=== PATIENT | male | born 1955 | race Caucasian/White ===

== ENCOUNTER 2023-02-10 01:10 | Inpatient (IN) | payer OTHER ==
[2023-02-10 02:06] LABS: SARS-CoV-2 NAA Rapid Test Not Detected (NotDetected)
[2023-02-10] MEDS ORDERED: Furosemide 40 MG/4 ML VIAL ONE ×2 (02:25→16:53)
[2023-02-10] MEDS ORDERED: Amiodarone 150 MG/3 ML VIAL ONE (02:35)
[2023-02-10] MEDS ORDERED: Amiodarone In Dextrose 200 ML ONE ×2 (02:44→08:51)
[2023-02-10 02:56] LABS: Hemoglobin 13.8 g/dL (13.5-17.5); Mean Corpuscular HGB CONC 31.4 g/dL (32.0-36.0); Mean Corpuscular Hemoglobin 25.7 pg (27.0-33.0); Mean Corpuscular Volume 82.1 fl (81.2-95.1); Mean Platelet Volume 10.5 fl (7.4-10.4); Platelet Count 166 10x3/uL (150-450); RBC Distribution Width 15.5 % (11.5-14.5); Red Blood Cell (RBC) Count 5.36 10x6/uL (4.32-5.72); White Blood Cell (WBC) Count 3.4 10x3/uL (3.5-10.5)
[2023-02-10 02:58] LABS: MDiff Complete? YES
[2023-02-10 03:14] LABS: ALT (SGPT) 111 U/L (8-55); AST (SGOT) 41 U/L (5-34); Albumin 4.2 g/dL (3.4-4.8); Alkaline Phosphatase 160 U/L (40-110); Anion Gap 19 mmol/L (10-20); BUN (Urea Nitrogen) 19 mg/dL (8.4-25.7); Bilirubin, Total 1.7 mg/dL (0.2-1.2); Calc. Creatinine Clearance 0 mL/min (70-130); Calcium 9.5 mg/dL (7.8-10.44); Carbon Dioxide 20 mmol/L (23-31); Chloride 105 mmol/L (98-107); Eosinophils 2 % (0-10); Estimated GFR 90; Globulin 2.7 g/dL (2.4-3.5); Glucose 100 mg/dL (80-115); Lymphocytes 64 % (21-51); Monocytes 6 % (0-10); Neutrophil 28 % (42-75); Potassium 3.9 mmol/L (3.5-5.1); Protein, Total 6.9 g/dL (5.8-8.1); Sodium 140 mmol/L (136-145)
[2023-02-10 03:15] LABS: Anisocytosis SLIGHT = 6-15 cells (100X) (0-5/hpf); Platelet Morphology Comment Appears Adequate
[2023-02-10] MEDS ORDERED: Metoprolol Tartrate 5 MG/5 ML VIAL ONE (09:56)
[2023-02-10] MEDS ORDERED: Metoprolol Tartrate 5 MG/5 ML VIAL IVP PRN (09:56)
[2023-02-10] MEDS ORDERED: Ondansetron ODT 4 MG TAB PO PRN (10:10)
[2023-02-10] MEDS ORDERED: Acetaminophen 650 MG Suppository PR PRN (10:10)
[2023-02-10] MEDS ORDERED: Guaifenesin DM 100-10/5 ML UDCUP PO PRN (10:10)
[2023-02-10] MEDS ORDERED: Senokot S 8.6-50 MG TAB PO PRN (10:10)
[2023-02-10] MEDS ORDERED: Acetaminophen 325 MG TAB PO PRN (10:10)
[2023-02-10] MEDS ORDERED: Polyethylene Glycol 3350 17 GM Packet PO SCH (10:45)
[2023-02-10 10:58] LABS: INR-International Normal Ratio 1.4; Prothrombin Time 15.2 sec (9.5-12.1)
[2023-02-10] MEDS ORDERED: Famotidine 20 MG TAB PO SCH (11:00)
[2023-02-10] MEDS: Furosemide 40 MG/4 ML VIAL SLOW IVP SCH (13:23)
[2023-02-10] MEDS: Amiodarone In Dextrose 360 MG in Premix Bag 1 BAG IVPB SCH ×2 (13:26→18:53)
[2023-02-10] MEDS ORDERED: Furosemide 40 MG/4 ML VIAL SLOW IVP SCH ×2 (14:00→17:00)
[2023-02-10] MEDS: Carvedilol 6.25 MG TAB PO SCH (16:13)
[2023-02-10] MEDS ORDERED: Warfarin Sodium 10 MG TAB PO SCH (17:00)
[2023-02-10 17:27] LABS: Actual Bicarbonate (HCO3a) 12.6 mEq/L (22-28); Base Excess (BEa) -8.4 mEq/L (-2.0 to +3.0); CO2 Tension 18.7 mmHg (35.0-45.0); Calcium, Ionized (arterial) 1.11 mmol/L (1.12-1.30); Carboxyhemoglobin (COHb) 0.2 gm% (0.0-3.0); Hematocrit-ABG 46 % (42.0-52.0); Hemoglobin (Hb) 15.5 g/dL (14.0-18.0); Potassium - ABG Lab 4.45 mmol/L (3.70-5.30); Puncture Site RBA; pH, Arterial 7.447 (7.35-7.45)
[2023-02-10 17:28] LABS: ALV-art Gradient 333.025 mmHg (0-20); O2 Tension (PaO2), arterial 356.6 mmHg (> 80.0)
[2023-02-10] MEDS: Polyethylene Glycol 3350 17 GM Packet PO SCH (20:40)
[2023-02-10] MEDS: Famotidine 20 MG TAB PO SCH (20:40)
[2023-02-10] MEDS: Atorvastatin Calcium 40 MG TAB PO SCH (20:40)
[2023-02-11 04:05] LABS: #Basophils 0.1 10x3/uL (0.0-0.2); #Monocytes 1.9 10x3/uL (0.0-1.1); #Neutrophils 14.4 10x3/uL (1.5-8.4); %Basophils 0.3 % (0.0-2.0); %Eosinophils 0.1 % (0.0-6.0); %Lymphocytes 8.4 % (18.0-47.0); %Monocytes 10.7 % (0.0-10.0); %Neutrophils 79.9 % (40.0-75.0); Hemoglobin 14.8 g/dL (13.5-17.5); INR-International Normal Ratio 1.9; Mean Corpuscular HGB CONC 31.5 g/dL (32.0-36.0); Mean Corpuscular Volume 82.5 fl (81.2-95.1); Mean Platelet Volume 11.4 fl (7.4-10.4); Platelet Count 173 10x3/uL (150-450); Prothrombin Time 20.3 sec (9.5-12.1); RBC Distribution Width 17.2 % (11.5-14.5)
[2023-02-11 04:24] LABS: Anion Gap 28 mmol/L (10-20); BUN (Urea Nitrogen) 29 mg/dL (8.4-25.7); Calc. Creatinine Clearance 66 mL/min (70-130); Calcium 9.4 mg/dL (7.8-10.44); Carbon Dioxide 12 mmol/L (23-31); Chloride 104 mmol/L (98-107); Estimated GFR 47; Glucose 85 mg/dL (80-115); Potassium 5.5 mmol/L (3.5-5.1); Sodium 138 mmol/L (136-145)
[2023-02-11] MEDS: Furosemide 40 MG/4 ML VIAL SLOW IVP SCH ×2 (05:59→13:30)
[2023-02-11] MEDS: Amiodarone In Dextrose 360 MG in Premix Bag 1 BAG IVPB SCH (07:51)
[2023-02-11] MEDS: DOBUTamine 500 mg/250 ml 250 ML IVPB SCH (07:51)
[2023-02-11] MEDS: Carvedilol 6.25 MG TAB PO SCH ×2 (07:52→16:44)
[2023-02-11] MEDS: Aspirin Chewable 81 MG TAB PO SCH (07:52)
[2023-02-11] MEDS: Famotidine 20 MG TAB PO SCH ×2 (07:52→20:25)
[2023-02-11] MEDS: Polyethylene Glycol 3350 17 GM Packet PO SCH ×3 (07:54→20:39)
[2023-02-11] MEDS ORDERED: Sodium Bicarbonate 140 MEQ in Dextrose 5% in Water 1,000 ML IV SCH (08:00)
[2023-02-11] MEDS ORDERED: Lisinopril 5 MG TAB PO SCH (09:00)
[2023-02-11 13:31] LABS: Anion Gap 21 mmol/L (10-20); BUN (Urea Nitrogen) 34 mg/dL (8.4-25.7); Calc. Creatinine Clearance 61 mL/min (70-130); Calcium 8.5 mg/dL (7.8-10.44); Carbon Dioxide 12 mmol/L (23-31); Chloride 105 mmol/L (98-107); Estimated GFR 43; Glucose 146 mg/dL (80-115); Potassium 4.9 mmol/L (3.5-5.1); Sodium 133 mmol/L (136-145)
[2023-02-11] MEDS ORDERED: Warfarin Sodium 2.5 MG TAB PO SCH (17:00)
[2023-02-11] MEDS: Atorvastatin Calcium 40 MG TAB PO SCH (20:25)
[2023-02-12 03:20] LABS: #Basophils 0.1 10x3/uL (0.0-0.2); #Eosinphils 0.2 10x3/uL (0.0-0.5); #Monocytes 1.1 10x3/uL (0.0-1.1); #Neutrophils 8.3 10x3/uL (1.5-8.4); %Basophils 0.7 % (0.0-2.0); %Eosinophils 1.9 % (0.0-6.0); %Lymphocytes 17.7 % (18.0-47.0); %Monocytes 8.9 % (0.0-10.0); %Neutrophils 70.4 % (40.0-75.0); Hemoglobin 13.1 g/dL (13.5-17.5); Mean Corpuscular HGB CONC 31.9 g/dL (32.0-36.0); Mean Corpuscular Hemoglobin 25.8 pg (27.0-33.0); Mean Corpuscular Volume 80.9 fl (81.2-95.1); Mean Platelet Volume 11.1 fl (7.4-10.4); Platelet Count 138 10x3/uL (150-450); RBC Distribution Width 15.5 % (11.5-14.5); Red Blood Cell (RBC) Count 5.08 10x6/uL (4.32-5.72); White Blood Cell (WBC) Count 11.9 10x3/uL (3.5-10.5)
[2023-02-12 03:23] LABS: INR-International Normal Ratio 1.8; Prothrombin Time 19.2 sec (9.5-12.1)
[2023-02-12 03:43] LABS: Anion Gap 17 mmol/L (10-20); BUN (Urea Nitrogen) 39 mg/dL (8.4-25.7); Calc. Creatinine Clearance 69 mL/min (70-130); Calcium 8.3 mg/dL (7.8-10.44); Carbon Dioxide 21 mmol/L (23-31); Chloride 101 mmol/L (98-107); Estimated GFR 50; Glucose 105 mg/dL (80-115); Potassium 4.4 mmol/L (3.5-5.1); Sodium 135 mmol/L (136-145)
[2023-02-12] MEDS: Furosemide 40 MG/4 ML VIAL SLOW IVP SCH ×2 (05:14→14:09)
[2023-02-12] MEDS: Carvedilol 6.25 MG TAB PO SCH ×2 (07:49→17:50)
[2023-02-12] MEDS: Aspirin Chewable 81 MG TAB PO SCH (07:50)
[2023-02-12] MEDS: Famotidine 20 MG TAB PO SCH ×2 (07:51→20:02)
[2023-02-12] MEDS: Polyethylene Glycol 3350 17 GM Packet PO SCH ×2 (07:52→20:02)
[2023-02-12] MEDS: DOBUTamine 500 mg/250 ml 250 ML IVPB SCH (15:53)
[2023-02-12] MEDS ORDERED: Warfarin Sodium 7.5 MG TAB PO SCH (17:00)
[2023-02-12] MEDS: Atorvastatin Calcium 40 MG TAB PO SCH (20:02)
[2023-02-13 04:02] LABS: INR-International Normal Ratio 1.6; Prothrombin Time 17.2 sec (9.5-12.1)
[2023-02-13] MEDS: Furosemide 40 MG/4 ML VIAL SLOW IVP SCH ×2 (05:24→14:43)
[2023-02-13] MEDS: Carvedilol 6.25 MG TAB PO SCH ×2 (08:59→16:45)
[2023-02-13] MEDS: Aspirin Chewable 81 MG TAB PO SCH (08:59)
[2023-02-13] MEDS: Polyethylene Glycol 3350 17 GM Packet PO SCH ×2 (08:59→20:08)
[2023-02-13] MEDS: Famotidine 20 MG TAB PO SCH ×2 (08:59→20:08)
[2023-02-13 09:09] LABS: #Basophils 0.1 10x3/uL (0.0-0.2); #Eosinphils 0.2 10x3/uL (0.0-0.5); #Monocytes 0.9 10x3/uL (0.0-1.1); #Neutrophils 6.7 10x3/uL (1.5-8.4); %Basophils 0.6 % (0.0-2.0); %Eosinophils 2.1 % (0.0-6.0); %Lymphocytes 16.6 % (18.0-47.0); %Monocytes 9.3 % (0.0-10.0); Hemoglobin 12.2 g/dL (13.5-17.5); Mean Corpuscular HGB CONC 30.9 g/dL (32.0-36.0); Mean Corpuscular Hemoglobin 25.2 pg (27.0-33.0); Mean Corpuscular Volume 81.6 fl (81.2-95.1); Mean Platelet Volume 11.3 fl (7.4-10.4); Platelet Count 151 10x3/uL (150-450); RBC Distribution Width 15.6 % (11.5-14.5); Red Blood Cell (RBC) Count 4.84 10x6/uL (4.32-5.72); White Blood Cell (WBC) Count 9.4 10x3/uL (3.5-10.5)
[2023-02-13 09:26] LABS: Phosphorus 2.8 mg/dL (2.3-4.7)
[2023-02-13 09:29] LABS: Anion Gap 13 mmol/L (10-20); BUN (Urea Nitrogen) 32 mg/dL (8.4-25.7); Calc. Creatinine Clearance 104 mL/min (70-130); Calcium 8.5 mg/dL (7.8-10.44); Carbon Dioxide 28 mmol/L (23-31); Chloride 99 mmol/L (98-107); Estimated GFR 78; Glucose 125 mg/dL (80-115); Magnesium 1.5 mg/dL (1.6-2.6); Potassium 3.4 mmol/L (3.5-5.1); Sodium 137 mmol/L (136-145)
[2023-02-13] MEDS ORDERED: Valsartan 80 MG TAB PO SCH (10:30)
[2023-02-13] MEDS ORDERED: Magnesium Sulfate 4 GM in Sodium Chloride 0.9% 250 ML 250 ML IVPB SCH (11:30)
[2023-02-13] MEDS ORDERED: Magnesium 2 GM/50 ML(in water) 2 GM in Premix Bag 1 BAG IVPB SCH (11:30)
[2023-02-13] MEDS ORDERED: Warfarin Sodium 10 MG TAB PO SCH (17:00)
[2023-02-13] MEDS: Atorvastatin Calcium 40 MG TAB PO SCH (20:08)
[2023-02-14 02:46] LABS: Prothrombin Time 20.9 sec (9.5-12.1)
[2023-02-14 02:50] LABS: #Basophils 0.1 10x3/uL (0.0-0.2); #Eosinphils 0.2 10x3/uL (0.0-0.5); #Monocytes 1.1 10x3/uL (0.0-1.1); %Basophils 0.6 % (0.0-2.0); %Eosinophils 2.8 % (0.0-6.0); %Monocytes 12.9 % (0.0-10.0); %Neutrophils 60.3 % (40.0-75.0); Hemoglobin 12.3 g/dL (13.5-17.5); Mean Corpuscular HGB CONC 31.1 g/dL (32.0-36.0); Mean Corpuscular Hemoglobin 25.5 pg (27.0-33.0); Mean Platelet Volume 11.4 fl (7.4-10.4); Platelet Count 153 10x3/uL (150-450); RBC Distribution Width 15.6 % (11.5-14.5); Red Blood Cell (RBC) Count 4.82 10x6/uL (4.32-5.72); White Blood Cell (WBC) Count 8.4 10x3/uL (3.5-10.5)
[2023-02-14 05:10] VITALS: BMI 35.0
[2023-02-14] MEDS: Furosemide 40 MG/4 ML VIAL SLOW IVP SCH ×2 (05:21→15:22)
[2023-02-14] MEDS: Valsartan 80 MG TAB PO SCH (08:10)
[2023-02-14] MEDS: Aspirin Chewable 81 MG TAB PO SCH (08:11)
[2023-02-14] MEDS: Famotidine 20 MG TAB PO SCH ×2 (08:11→21:40)
[2023-02-14] MEDS: Carvedilol 6.25 MG TAB PO SCH ×2 (08:11→18:15)
[2023-02-14] MEDS: Polyethylene Glycol 3350 17 GM Packet PO SCH ×2 (10:11→21:40)
[2023-02-14] MEDS: Warfarin Sodium 2.5 MG TAB PO SCH (18:17)
[2023-02-14] MEDS: Atorvastatin Calcium 40 MG TAB PO SCH (21:40)
[2023-02-15 04:02] LABS: INR-International Normal Ratio 2.3; Prothrombin Time 24.9 sec (9.5-12.1)
[2023-02-15 04:03] LABS: #Eosinphils 0.3 10x3/uL (0.0-0.5); #Monocytes 1.2 10x3/uL (0.0-1.1); #Neutrophils 4.9 10x3/uL (1.5-8.4); %Basophils 0.5 % (0.0-2.0); %Eosinophils 3.7 % (0.0-6.0); %Lymphocytes 22.9 % (18.0-47.0); %Monocytes 14.6 % (0.0-10.0); %Neutrophils 58.1 % (40.0-75.0); Hemoglobin 12.7 g/dL (13.5-17.5); Mean Corpuscular HGB CONC 30.5 g/dL (32.0-36.0); Mean Corpuscular Hemoglobin 25.5 pg (27.0-33.0); Mean Corpuscular Volume 83.7 fl (81.2-95.1); Mean Platelet Volume 10.6 fl (7.4-10.4); Platelet Count 142 10x3/uL (150-450); RBC Distribution Width 16.1 % (11.5-14.5); Red Blood Cell (RBC) Count 4.98 10x6/uL (4.32-5.72); White Blood Cell (WBC) Count 8.4 10x3/uL (3.5-10.5)
[2023-02-15] MEDS: Furosemide 40 MG/4 ML VIAL SLOW IVP SCH (05:28)
[2023-02-15] MEDS: Valsartan 80 MG TAB PO SCH (08:27)
[2023-02-15] MEDS: Famotidine 20 MG TAB PO SCH ×2 (08:27→21:24)
[2023-02-15] MEDS: Carvedilol 6.25 MG TAB PO SCH ×2 (08:27→17:16)
[2023-02-15] MEDS: Polyethylene Glycol 3350 17 GM Packet PO SCH ×2 (08:28→21:24)
[2023-02-15] MEDS: Aspirin Chewable 81 MG TAB PO SCH (08:28)
[2023-02-15 12:35] LABS: ALT (SGPT) 389 U/L (8-55); AST (SGOT) 69 U/L (5-34); Albumin 3.5 g/dL (3.4-4.8); Alkaline Phosphatase 117 U/L (40-110); Anion Gap 15 mmol/L (10-20); BUN (Urea Nitrogen) 35 mg/dL (8.4-25.7); Bilirubin, Total 1.3 mg/dL (0.2-1.2); Calc. Creatinine Clearance 106 mL/min (70-130); Calcium 8.7 mg/dL (7.8-10.44); Carbon Dioxide 29 mmol/L (23-31); Chloride 98 mmol/L (98-107); Estimated GFR 80; Globulin 2.3 g/dL (2.4-3.5); Glucose 112 mg/dL (80-115); Protein, Total 5.8 g/dL (5.8-8.1); Sodium 138 mmol/L (136-145)
[2023-02-15] MEDS: Furosemide 40 MG TAB PO SCH (15:30)
[2023-02-15] MEDS: Warfarin Sodium 2.5 MG TAB PO SCH (17:16)
[2023-02-15] MEDS: Atorvastatin Calcium 40 MG TAB PO SCH (21:24)
[2023-02-16 04:37] LABS: INR-International Normal Ratio 2.3; Prothrombin Time 24.9 sec (9.5-12.1)
[2023-02-16] MEDS: Valsartan 80 MG TAB PO SCH (08:28)
[2023-02-16] MEDS: Polyethylene Glycol 3350 17 GM Packet PO SCH ×2 (08:28→21:08)
[2023-02-16] MEDS: Famotidine 20 MG TAB PO SCH ×2 (08:28→21:07)
[2023-02-16] MEDS: Furosemide 40 MG TAB PO SCH ×2 (08:28→16:50)
[2023-02-16] MEDS: Carvedilol 6.25 MG TAB PO SCH ×2 (08:28→16:50)
[2023-02-16] MEDS: Aspirin Chewable 81 MG TAB PO SCH (08:28)
[2023-02-16] MEDS: Warfarin Sodium 2.5 MG TAB PO SCH (16:50)
[2023-02-16] MEDS: Atorvastatin Calcium 40 MG TAB PO SCH (21:07)
[2023-02-16 23:02] VITALS: TEMP 97.7
[2023-02-17 00:47] VITALS: BP 130/64
== END 2023-02-17 00:55 | DRG 291 ==
LOC: CSHERS 01:10 → EEVIPCON 06:52 → CSHTELE 06:52 → CSHERHOLD 07:02 → CSHIMCU 08:50 → CSHTELE 02-14 19:11
PROVIDERS: ADMIT Family Medicine; ATTEND Family Medicine
PROC: 4A033R1 Measurement of Arterial Saturation, Peripheral, Percutaneous Approach (ICD-10-PCS; principal; 2023-02-10)
PROC: 5A09457 Assistance with Respiratory Ventilation, 24-96 Consecutive Hours, Continuous Positive Airway Pressure (ICD-10-PCS; 2023-02-10)
DX: I11.0 Hypertensive heart disease with heart failure (principal); I50.23 Acute on chronic systolic (congestive) heart failure; J96.01 Acute respiratory failure with hypoxia; I48.11 Longstanding persistent atrial fibrillation; E87.20 Acidosis, unspecified; E87.3 Alkalosis; N17.9 Acute kidney failure, unspecified; I42.0 Dilated cardiomyopathy; I25.10 Atherosclerotic heart disease of native coronary artery without angina pectoris; G47.33 Obstructive sleep apnea (adult) (pediatric); K59.09 Other constipation; J44.9 Chronic obstructive pulmonary disease, unspecified; G40.909 Epilepsy, unspecified, not intractable, without status epilepticus; K43.9 Ventral hernia without obstruction or gangrene; E78.5 Hyperlipidemia, unspecified; E11.9 Type 2 diabetes mellitus without complications; E87.5 Hyperkalemia; E83.42 Hypomagnesemia; Z98.890 Other specified postprocedural states; Z88.0 Allergy status to penicillin; Z79.82 Long term (current) use of aspirin; Z95.5 Presence of coronary angioplasty implant and graft; Z95.0 Presence of cardiac pacemaker; Z82.49 Family history of ischemic heart disease and other diseases of the circulatory system; Z79.899 Other long term (current) drug therapy; Z20.822 Contact with and (suspected) exposure to COVID-19
CPT/HCPCS: 36415; 36600; 71045; 80048; 80053; 82553; 82805; 83036; 83735; 83880; 84100; 84484; 85025; 85610; 93005; 93306; 94660; 94760; 94762; 96374; 96375; 96376; J0282; J0283; J1250; J1650; J1940; J3475; J7070; U0002

== ENCOUNTER 2023-06-08 13:18 | Inpatient (IN) | payer OTHER ==
[2023-06-08 14:21] LABS: #Basophils 0.1 10x3/uL (0.0-0.2); #Eosinphils 0.2 10x3/uL (0.0-0.5); #Monocytes 1.1 10x3/uL (0.0-1.1); %Basophils 0.6 % (0.0-2.0); %Eosinophils 1.5 % (0.0-6.0); %Monocytes 10.6 % (0.0-10.0); %Neutrophils 67.9 % (40.0-75.0); Hematocrit 45.1 % (38.8-50.0); Hemoglobin 13.8 g/dL (13.5-17.5); Mean Corpuscular HGB CONC 30.6 g/dL (32.0-36.0); Mean Corpuscular Hemoglobin 24.2 pg (27.0-33.0); Mean Corpuscular Volume 79.1 fl (81.2-95.1); Platelet Count 210 10x3/uL (150-450); RBC Distribution Width 19.7 % (11.5-14.5); White Blood Cell (WBC) Count 10.3 10x3/uL (3.5-10.5)
[2023-06-08 14:33] LABS: ALT (SGPT) 20 U/L (8-55); AST (SGOT) 21 U/L (5-34); Albumin 3.8 g/dL (3.4-4.8); Alkaline Phosphatase 144 U/L (40-110); Anion Gap 20 mmol/L (10-20); BUN (Urea Nitrogen) 22 mg/dL (8.4-25.7); Bilirubin, Total 2.9 mg/dL (0.2-1.2); Calc. Creatinine Clearance 0 mL/min (70-130); Carbon Dioxide 18 mmol/L (23-31); Chloride 104 mmol/L (98-107); Estimated GFR 87; Globulin 2.2 g/dL (2.4-3.5); Glucose 103 mg/dL (80-115); Lipase 16 U/L (8-78); Potassium 4.7 mmol/L (3.5-5.1); Sodium 137 mmol/L (136-145)
[2023-06-08 14:39] LABS: Troponin I 0.072 ng/mL (< 0.028)
[2023-06-08] MEDS ORDERED: Furosemide 40 MG/4 ML VIAL ONE (14:53)
[2023-06-08 16:05] LABS: SARS-CoV-2 NAA Rapid Test DETECTED (NotDetected)
[2023-06-08] MEDS ORDERED: Ondansetron ODT 4 MG TAB PO PRN (16:26)
[2023-06-08] MEDS ORDERED: Acetaminophen 325 MG TAB PO PRN (16:26)
[2023-06-08 19:11] LABS: INR-International Normal Ratio 1.5; Prothrombin Time 15.7 sec (9.5-12.1)
[2023-06-08 19:17] LABS: Troponin I 0.082 ng/mL (< 0.028)
[2023-06-08] MEDS ORDERED: Warfarin Sodium 2.5 MG TAB PO SCH (20:00)
[2023-06-08] MEDS: Atorvastatin Calcium 40 MG TAB PO SCH (20:31)
[2023-06-08 22:34] LABS: Digoxin Less than 0.15 ng/mL (0.8-2.0)
[2023-06-08 22:40] LABS: Troponin I 0.071 ng/mL (< 0.028)
[2023-06-09 03:51] LABS: INR-International Normal Ratio 1.4; Prothrombin Time 14.9 sec (9.5-12.1)
[2023-06-09 03:55] LABS: #Eosinphils 0.3 10x3/uL (0.0-0.5); #Monocytes 1.3 10x3/uL (0.0-1.1); #Neutrophils 6.4 10x3/uL (1.5-8.4); %Basophils 0.4 % (0.0-2.0); %Eosinophils 2.5 % (0.0-6.0); %Lymphocytes 18.3 % (18.0-47.0); %Monocytes 13.4 % (0.0-10.0); Hemoglobin 13.5 g/dL (13.5-17.5); Mean Corpuscular HGB CONC 30.7 g/dL (32.0-36.0); Mean Corpuscular Hemoglobin 24.4 pg (27.0-33.0); Mean Corpuscular Volume 79.6 fl (81.2-95.1); Mean Platelet Volume 11.4 fl (7.4-10.4); Platelet Count 197 10x3/uL (150-450); RBC Distribution Width 19.1 % (11.5-14.5); Red Blood Cell (RBC) Count 5.53 10x6/uL (4.32-5.72); White Blood Cell (WBC) Count 9.9 10x3/uL (3.5-10.5)
[2023-06-09 04:07] LABS: ALT (SGPT) 20 U/L (8-55); AST (SGOT) 19 U/L (5-34); Albumin 3.6 g/dL (3.4-4.8); Alkaline Phosphatase 137 U/L (40-110); Anion Gap 16 mmol/L (10-20); BUN (Urea Nitrogen) 22 mg/dL (8.4-25.7); Bilirubin, Total 2.3 mg/dL (0.2-1.2); Calc. Creatinine Clearance 90 mL/min (70-130); Calcium 8.9 mg/dL (7.8-10.44); Carbon Dioxide 20 mmol/L (23-31); Chloride 104 mmol/L (98-107); Estimated GFR 86; Globulin 2.3 g/dL (2.4-3.5); Glucose 97 mg/dL (80-115); Protein, Total 5.9 g/dL (5.8-8.1); Sodium 136 mmol/L (136-145)
[2023-06-09] MEDS: Furosemide 40 MG/4 ML VIAL SLOW IVP SCH ×2 (06:36→14:12)
[2023-06-09] MEDS ORDERED: Spironolactone 25 MG TAB PO SCH (08:00)
[2023-06-09] MEDS: Digoxin 0.125 MG TAB PO SCH (08:20)
[2023-06-09] MEDS: Aspirin 81 mg Enteric Coated Tablet PO SCH (08:20)
[2023-06-09] MEDS: Carvedilol 25 MG TAB PO SCH ×3 (08:20→16:39)
[2023-06-09] MEDS ORDERED: Lisinopril 10 MG TAB PO SCH (09:00)
[2023-06-09] MEDS ORDERED: Warfarin Sodium 2.5 MG TAB PO SCH (17:00)
[2023-06-09] MEDS ORDERED: Warfarin Sodium 10 MG TAB PO SCH (17:00)
[2023-06-09] MEDS: Albumin 25% 25 GM/100 ML BOT IVPB SCH ×2 (18:12→23:08)
[2023-06-09] MEDS: Atorvastatin Calcium 40 MG TAB PO SCH (22:45)
[2023-06-09] MEDS: Apixaban 5 MG TAB PO SCH (22:45)
[2023-06-10] MEDS: Furosemide 40 MG/4 ML VIAL SLOW IVP SCH ×2 (05:17→14:33)
[2023-06-10] MEDS: Albumin 25% 25 GM/100 ML BOT IVPB SCH ×2 (05:17→12:37)
[2023-06-10 05:44] LABS: Anion Gap 15 mmol/L (10-20); BUN (Urea Nitrogen) 26 mg/dL (8.4-25.7); Calc. Creatinine Clearance 73 mL/min (70-130); Calcium 8.5 mg/dL (7.8-10.44); Carbon Dioxide 19 mmol/L (23-31); Chloride 105 mmol/L (98-107); Estimated GFR 66; Glucose 96 mg/dL (80-115); Sodium 135 mmol/L (136-145)
[2023-06-10 05:51] LABS: Potassium 3.8 mmol/L (3.5-5.1)
[2023-06-10] MEDS ORDERED: Carvedilol 3.125 MG TAB PO SCH (08:00)
[2023-06-10] MEDS: Lisinopril 2.5 MG TAB PO SCH (08:51)
[2023-06-10] MEDS: Apixaban 5 MG TAB PO SCH ×2 (08:51→23:00)
[2023-06-10] MEDS: Digoxin 0.125 MG TAB PO SCH (08:51)
[2023-06-10] MEDS: Spironolactone 25 MG TAB PO SCH (08:51)
[2023-06-10] MEDS: Aspirin 81 mg Enteric Coated Tablet PO SCH (08:51)
[2023-06-10] MEDS: Carvedilol 3.125 MG TAB PO SCH ×2 (08:51→17:33)
[2023-06-10] MEDS ORDERED: Lisinopril 5 MG TAB PO SCH (09:00)
[2023-06-10] MEDS ORDERED: Lisinopril 2.5 MG TAB PO SCH (09:00)
[2023-06-10] MEDS: Atorvastatin Calcium 40 MG TAB PO SCH (23:00)
[2023-06-11] MEDS: Furosemide 40 MG/4 ML VIAL SLOW IVP SCH ×2 (05:43→13:33)
[2023-06-11 08:03] LABS: #Basophils 0.1 10x3/uL (0.0-0.2); #Eosinphils 0.4 10x3/uL (0.0-0.5); #Monocytes 1.2 10x3/uL (0.0-1.1); #Neutrophils 7.2 10x3/uL (1.5-8.4); %Basophils 0.5 % (0.0-2.0); %Eosinophils 3.4 % (0.0-6.0); %Lymphocytes 18.5 % (18.0-47.0); %Monocytes 10.6 % (0.0-10.0); %Neutrophils 66.6 % (40.0-75.0); Hematocrit 41.7 % (38.8-50.0); Hemoglobin 12.7 g/dL (13.5-17.5); Mean Corpuscular HGB CONC 30.5 g/dL (32.0-36.0); Mean Corpuscular Hemoglobin 24.5 pg (27.0-33.0); Mean Corpuscular Volume 80.3 fl (81.2-95.1); Mean Platelet Volume 11.4 fl (7.4-10.4); Platelet Count 171 10x3/uL (150-450); Red Blood Cell (RBC) Count 5.19 10x6/uL (4.32-5.72); White Blood Cell (WBC) Count 10.8 10x3/uL (3.5-10.5)
[2023-06-11 09:13] LABS: ALT (SGPT) 9 U/L (8-55); AST (SGOT) 13 U/L (5-34); Albumin 4.2 g/dL (3.4-4.8); Alkaline Phosphatase 124 U/L (40-110); Anion Gap 17 mmol/L (10-20); BUN (Urea Nitrogen) 34 mg/dL (8.4-25.7); Bilirubin, Total 1.9 mg/dL (0.2-1.2); Calc. Creatinine Clearance 83 mL/min (70-130); Calcium 9.2 mg/dL (7.8-10.44); Carbon Dioxide 21 mmol/L (23-31); Chloride 102 mmol/L (98-107); Estimated GFR 78; Globulin 2.1 g/dL (2.4-3.5); Glucose 105 mg/dL (80-115); Potassium 4.4 mmol/L (3.5-5.1); Protein, Total 6.3 g/dL (5.8-8.1); Sodium 136 mmol/L (136-145)
[2023-06-11] MEDS: Carvedilol 3.125 MG TAB PO SCH ×2 (09:15→17:38)
[2023-06-11] MEDS: Aspirin 81 mg Enteric Coated Tablet PO SCH (09:15)
[2023-06-11] MEDS: Spironolactone 25 MG TAB PO SCH (09:15)
[2023-06-11] MEDS: Digoxin 0.125 MG TAB PO SCH (09:15)
[2023-06-11] MEDS: Lisinopril 2.5 MG TAB PO SCH (09:16)
[2023-06-11] MEDS: Apixaban 5 MG TAB PO SCH ×2 (09:16→21:56)
[2023-06-11] MEDS: Atorvastatin Calcium 40 MG TAB PO SCH (21:56)
[2023-06-12 05:39] LABS: Anion Gap 16 mmol/L (10-20); BUN (Urea Nitrogen) 32 mg/dL (8.4-25.7); Calc. Creatinine Clearance 99 mL/min (70-130); Calcium 8.9 mg/dL (7.8-10.44); Carbon Dioxide 21 mmol/L (23-31); Chloride 104 mmol/L (98-107); Estimated GFR 94; Glucose 90 mg/dL (80-115); Magnesium 1.4 mg/dL (1.6-2.6); Potassium 3.9 mmol/L (3.5-5.1); Sodium 137 mmol/L (136-145)
[2023-06-12 05:44] LABS: #Basophils 0.1 10x3/uL (0.0-0.2); #Eosinphils 0.4 10x3/uL (0.0-0.5); #Monocytes 0.9 10x3/uL (0.0-1.1); #Neutrophils 6.3 10x3/uL (1.5-8.4); %Basophils 0.5 % (0.0-2.0); %Eosinophils 3.8 % (0.0-6.0); %Lymphocytes 17.3 % (18.0-47.0); %Monocytes 9.8 % (0.0-10.0); %Neutrophils 68.3 % (40.0-75.0); Hematocrit 39.2 % (38.8-50.0); Hemoglobin 12.1 g/dL (13.5-17.5); Mean Corpuscular HGB CONC 30.9 g/dL (32.0-36.0); Mean Corpuscular Hemoglobin 24.2 pg (27.0-33.0); Mean Corpuscular Volume 78.4 fl (81.2-95.1); Mean Platelet Volume 11.8 fl (7.4-10.4); Platelet Count 159 10x3/uL (150-450); RBC Distribution Width 18.8 % (11.5-14.5); White Blood Cell (WBC) Count 9.2 10x3/uL (3.5-10.5)
[2023-06-12] MEDS: Furosemide 40 MG/4 ML VIAL SLOW IVP SCH (06:45)
[2023-06-12] MEDS: Magnesium 2 GM/50 ML(in water) 2 GM in Premix Bag 1 BAG IVPB SCH ×2 (08:02→10:07)
[2023-06-12] MEDS: Spironolactone 25 MG TAB PO SCH (08:03)
[2023-06-12] MEDS: Lisinopril 2.5 MG TAB PO SCH (08:03)
[2023-06-12] MEDS: Aspirin 81 mg Enteric Coated Tablet PO SCH (08:03)
[2023-06-12] MEDS: Carvedilol 3.125 MG TAB PO SCH ×2 (08:03→17:08)
[2023-06-12] MEDS: Digoxin 0.125 MG TAB PO SCH (08:03)
[2023-06-12] MEDS: Apixaban 5 MG TAB PO SCH (08:03)
[2023-06-12] MEDS: Furosemide 40 MG TAB PO SCH (12:51)
[2023-06-12] MEDS: Ipratropium Bromide 2.5 ml Neb NEB SCH ×2 (15:45→19:50)
[2023-06-12] MEDS ORDERED: Ipratropium Bromide 2.5 ml Neb ONE (15:49)
[2023-06-12] MEDS: Rivaroxaban 10 MG TAB PO SCH (17:08)
[2023-06-12] MEDS: Arformoterol 15 MCG/2 ML NEB NEB SCH (19:51)
[2023-06-12] MEDS: Atorvastatin Calcium 40 MG TAB PO SCH (20:09)
[2023-06-13] MEDS: Ipratropium Bromide 2.5 ml Neb NEB SCH ×4 (00:45→19:50)
[2023-06-13 06:01] LABS: #Basophils 0.1 10x3/uL (0.0-0.2); #Eosinphils 0.3 10x3/uL (0.0-0.5); #Monocytes 1.2 10x3/uL (0.0-1.1); #Neutrophils 7.6 10x3/uL (1.5-8.4); %Basophils 0.6 % (0.0-2.0); %Eosinophils 2.7 % (0.0-6.0); %Lymphocytes 12.7 % (18.0-47.0); %Monocytes 11.7 % (0.0-10.0); %Neutrophils 71.9 % (40.0-75.0); Hematocrit 40.4 % (38.8-50.0); Hemoglobin 12.2 g/dL (13.5-17.5); Mean Corpuscular HGB CONC 30.2 g/dL (32.0-36.0); Mean Corpuscular Hemoglobin 24.2 pg (27.0-33.0); Platelet Count 145 10x3/uL (150-450); Red Blood Cell (RBC) Count 5.05 10x6/uL (4.32-5.72); White Blood Cell (WBC) Count 10.6 10x3/uL (3.5-10.5)
[2023-06-13 06:23] LABS: Anion Gap 16 mmol/L (10-20); BUN (Urea Nitrogen) 29 mg/dL (8.4-25.7); Calc. Creatinine Clearance 120 mL/min (70-130); Carbon Dioxide 22 mmol/L (23-31); Chloride 102 mmol/L (98-107); Estimated GFR 91; Glucose 119 mg/dL (80-115); Magnesium 1.7 mg/dL (1.6-2.6); Potassium 4.4 mmol/L (3.5-5.1); Sodium 136 mmol/L (136-145)
[2023-06-13] MEDS: Arformoterol 15 MCG/2 ML NEB NEB SCH ×2 (07:10→19:50)
[2023-06-13] MEDS: Magnesium Oxide 400 MG TAB PO SCH (08:43)
[2023-06-13] MEDS: Aspirin 81 mg Enteric Coated Tablet PO SCH (08:43)
[2023-06-13] MEDS: Carvedilol 3.125 MG TAB PO SCH ×2 (08:43→17:24)
[2023-06-13] MEDS: Lisinopril 2.5 MG TAB PO SCH (08:43)
[2023-06-13] MEDS: Furosemide 40 MG TAB PO SCH ×2 (08:43→15:51)
[2023-06-13] MEDS: Spironolactone 25 MG TAB PO SCH (08:43)
[2023-06-13] MEDS: Digoxin 0.125 MG TAB PO SCH (08:44)
[2023-06-13] MEDS ORDERED: Magnesium 2 GM/50 ML(in water) 2 GM in Premix Bag 1 BAG IVPB SCH (13:00)
[2023-06-13] MEDS: Rivaroxaban 10 MG TAB PO SCH (17:23)
[2023-06-13] MEDS: Atorvastatin Calcium 40 MG TAB PO SCH (21:15)
[2023-06-14] MEDS: Ipratropium Bromide 2.5 ml Neb NEB SCH ×4 (02:00→20:31)
[2023-06-14 05:44] LABS: #Basophils 0.1 10x3/uL (0.0-0.2); #Eosinphils 0.5 10x3/uL (0.0-0.5); #Monocytes 1.2 10x3/uL (0.0-1.1); #Neutrophils 6.5 10x3/uL (1.5-8.4); %Basophils 0.5 % (0.0-2.0); %Eosinophils 4.8 % (0.0-6.0); %Lymphocytes 13.7 % (18.0-47.0); %Monocytes 12.5 % (0.0-10.0); %Neutrophils 68.2 % (40.0-75.0); Hematocrit 39.5 % (38.8-50.0); Mean Corpuscular HGB CONC 30.4 g/dL (32.0-36.0); Mean Corpuscular Volume 78.8 fl (81.2-95.1); Mean Platelet Volume 10.9 fl (7.4-10.4); Platelet Count 152 10x3/uL (150-450); Red Blood Cell (RBC) Count 5.01 10x6/uL (4.32-5.72); White Blood Cell (WBC) Count 9.5 10x3/uL (3.5-10.5)
[2023-06-14 05:56] LABS: Anion Gap 15 mmol/L (10-20); BUN (Urea Nitrogen) 27 mg/dL (8.4-25.7); Calc. Creatinine Clearance 126 mL/min (70-130); Calcium 9.2 mg/dL (7.8-10.44); Carbon Dioxide 24 mmol/L (23-31); Chloride 100 mmol/L (98-107); Estimated GFR 95; Glucose 112 mg/dL (80-115); Magnesium 1.7 mg/dL (1.6-2.6); Potassium 3.9 mmol/L (3.5-5.1); Sodium 135 mmol/L (136-145)
[2023-06-14] MEDS: Arformoterol 15 MCG/2 ML NEB NEB SCH ×2 (07:10→20:31)
[2023-06-14] MEDS ORDERED: Magnesium 2 GM/50 ML(in water) 2 GM in Premix Bag 1 BAG IVPB SCH (08:15)
[2023-06-14] MEDS: Digoxin 0.125 MG TAB PO SCH (09:05)
[2023-06-14] MEDS: Spironolactone 25 MG TAB PO SCH (09:05)
[2023-06-14] MEDS: Lisinopril 2.5 MG TAB PO SCH (09:05)
[2023-06-14] MEDS: Magnesium Oxide 400 MG TAB PO SCH (09:05)
[2023-06-14] MEDS: Aspirin 81 mg Enteric Coated Tablet PO SCH (09:05)
[2023-06-14] MEDS: Carvedilol 3.125 MG TAB PO SCH ×2 (09:06→17:39)
[2023-06-14] MEDS: Furosemide 40 MG TAB PO SCH ×2 (09:06→14:26)
[2023-06-14] MEDS: Rivaroxaban 10 MG TAB PO SCH (17:39)
[2023-06-14 20:16] VITALS: BMI 28.0
[2023-06-14] MEDS: Atorvastatin Calcium 40 MG TAB PO SCH (20:38)
[2023-06-14 21:37] VITALS: BP 144/75; TEMP 97.5
== END 2023-06-14 21:20 | DRG 291 ==
LOC: CSHERS 13:18 → EEVIPCON 16:11 → CSHTELE 16:11
PROVIDERS: ADMIT Internal Medicine; ATTEND Family Medicine
PROC: 30233J1 Transfusion of Nonautologous Serum Albumin into Peripheral Vein, Percutaneous Approach (ICD-10-PCS; principal; 2023-06-09)
DX: I11.0 Hypertensive heart disease with heart failure (principal); U07.1 COVID-19; J96.11 Chronic respiratory failure with hypoxia; I48.11 Longstanding persistent atrial fibrillation; I50.22 Chronic systolic (congestive) heart failure; J44.9 Chronic obstructive pulmonary disease, unspecified; E78.5 Hyperlipidemia, unspecified; I25.10 Atherosclerotic heart disease of native coronary artery without angina pectoris; G47.33 Obstructive sleep apnea (adult) (pediatric); K46.9 Unspecified abdominal hernia without obstruction or gangrene; I25.2 Old myocardial infarction; E83.42 Hypomagnesemia; Z95.1 Presence of aortocoronary bypass graft; Z88.0 Allergy status to penicillin; Z79.899 Other long term (current) drug therapy; Z82.49 Family history of ischemic heart disease and other diseases of the circulatory system
CPT/HCPCS: 36415; 71045; 80048; 80053; 80162; 83690; 83735; 83880; 84484; 85025; 85610; 93005; 93010; 94640; 94760; 96372; 96374; J1650; J1940; J3475; P9047; U0002

== ENCOUNTER 2023-11-07 17:17 | Emergency (ER) | payer OTHER ==
[2023-11-07] MEDS ORDERED: Furosemide 40 MG (4 mL) VIAL ONE (18:29)
[2023-11-07] MEDS ORDERED: Morphine 4 MG/ML VIAL ONE (18:29)
[2023-11-07 18:39] LABS: #Basophils 0.1 10x3/uL (0.0-0.2); #Eosinphils 1.7 10x3/uL (0.0-0.5); #Monocytes 0.8 10x3/uL (0.0-1.1); #Neutrophils 6.8 10x3/uL (1.5-8.4); %Basophils 0.7 % (0.0-2.0); %Eosinophils 15.7 % (0.0-6.0); %Monocytes 7.2 % (0.0-10.0); %Neutrophils 64.1 % (40.0-75.0); Hematocrit 39.4 % (38.8-50.0); Hemoglobin 12.4 g/dL (13.5-17.5); Mean Corpuscular HGB CONC 31.5 g/dL (32.0-36.0); Mean Corpuscular Volume 82.6 fl (81.2-95.1); Mean Platelet Volume 10.1 fl (7.4-10.4); Platelet Count 216 10x3/uL (150-450); Red Blood Cell (RBC) Count 4.77 10x6/uL (4.32-5.72); White Blood Cell (WBC) Count 10.6 10x3/uL (3.5-10.5)
[2023-11-07 18:47] LABS: ALT (SGPT) 14 U/L (8-55); AST (SGOT) 13 U/L (5-34); Albumin 3.9 g/dL (3.4-4.8); Alkaline Phosphatase 191 U/L (40-110); Anion Gap 13 mmol/L (10-20); BUN (Urea Nitrogen) 18 mg/dL (8.4-25.7); Bilirubin, Total 1.6 mg/dL (0.2-1.2); Calc. Creatinine Clearance 0 mL/min (70-130); Calcium 8.9 mg/dL (7.8-10.44); Carbon Dioxide 22 mmol/L (23-31); Chloride 105 mmol/L (98-107); Estimated GFR 97; Globulin 2.5 g/dL (2.4-3.5); Glucose 93 mg/dL (80-115); Magnesium 1.8 mg/dL (1.6-2.6); Potassium 4.2 mmol/L (3.5-5.1); Protein, Total 6.4 g/dL (5.8-8.1); Sodium 136 mmol/L (136-145)
[2023-11-07 18:56] LABS: Troponin I 0.051 ng/mL (< 0.028)
== END 2023-11-07 21:55 ==
LOC: CSHERS 17:17 → EEVIPCON 17:17 → CSHERS 21:55
DX: I25.118 Atherosclerotic heart disease of native coronary artery with other forms of angina pectoris (principal); J44.9 Chronic obstructive pulmonary disease, unspecified; I11.0 Hypertensive heart disease with heart failure; I50.9 Heart failure, unspecified; Z55.6 Problems related to health literacy
CPT/HCPCS: 36415; 71045; 80053; 83735; 83880; 84484; 85025; 93005; 96374; 96375; J1940; J2270

== ENCOUNTER 2023-11-17 01:36 | Emergency (ER) | payer OTHER ==
[2023-11-17 02:14] LABS: #Basophils 0.1 10x3/uL (0.0-0.2); #Eosinphils 1.2 10x3/uL (0.0-0.5); #Monocytes 0.7 10x3/uL (0.0-1.1); #Neutrophils 6.1 10x3/uL (1.5-8.4); %Basophils 0.8 % (0.0-2.0); %Eosinophils 12.6 % (0.0-6.0); %Lymphocytes 13.4 % (18.0-47.0); %Neutrophils 65.9 % (40.0-75.0); Hematocrit 37.8 % (38.8-50.0); Hemoglobin 12.1 g/dL (13.5-17.5); Mean Corpuscular Hemoglobin 26.7 pg (27.0-33.0); Mean Corpuscular Volume 83.3 fl (81.2-95.1); Platelet Count 196 10x3/uL (150-450); RBC Distribution Width 17.1 % (11.5-14.5); Red Blood Cell (RBC) Count 4.54 10x6/uL (4.32-5.72); White Blood Cell (WBC) Count 9.2 10x3/uL (3.5-10.5)
[2023-11-17 02:31] LABS: ALT (SGPT) 8 U/L (8-55); AST (SGOT) 12 U/L (5-34); Albumin 3.7 g/dL (3.4-4.8); Alkaline Phosphatase 184 U/L (40-110); Anion Gap 13 mmol/L (10-20); BUN (Urea Nitrogen) 18 mg/dL (8.4-25.7); Bilirubin, Total 1.6 mg/dL (0.2-1.2); Calc. Creatinine Clearance 0 mL/min (70-130); Calcium 8.9 mg/dL (7.8-10.44); Carbon Dioxide 21 mmol/L (23-31); Chloride 107 mmol/L (98-107); Estimated GFR 97; Globulin 2.3 g/dL (2.4-3.5); Glucose 85 mg/dL (80-115); Potassium 3.8 mmol/L (3.5-5.1); Sodium 137 mmol/L (136-145)
[2023-11-17 02:34] LABS: Troponin I 0.047 ng/mL (< 0.028)
[2023-11-17 02:46] LABS: Lipase 10 U/L (8-78); Magnesium 1.7 mg/dL (1.6-2.6)
[2023-11-17] MEDS ORDERED: Furosemide 40 MG (4 mL) VIAL ONE (03:31)
[2023-11-17] MEDS ORDERED: Docusate 100 MG CAP PO SCH (04:00)
[2023-11-17 05:01] LABS: Troponin I 0.052 ng/mL (< 0.028)
== END 2023-11-17 06:06 ==
LOC: CSHERS 01:36
DX: I11.0 Hypertensive heart disease with heart failure (principal); I50.9 Heart failure, unspecified; I25.10 Atherosclerotic heart disease of native coronary artery without angina pectoris; I48.91 Unspecified atrial fibrillation; Z79.899 Other long term (current) drug therapy
CPT/HCPCS: 71045; 80053; 83690; 83735; 83880; 84484; 85025; 93005; 96374; J1940

== ENCOUNTER 2023-11-28 14:28 | Emergency (ER) | payer OTHER ==
[2023-11-28 15:03] LABS: #Eosinphils 0.7 10x3/uL (0.0-0.5); #Monocytes 0.5 10x3/uL (0.0-1.1); #Neutrophils 6.2 10x3/uL (1.5-8.4); %Basophils 0.4 % (0.0-2.0); %Eosinophils 7.9 % (0.0-6.0); %Lymphocytes 10.4 % (18.0-47.0); %Monocytes 6.3 % (0.0-10.0); %Neutrophils 74.5 % (40.0-75.0); Hematocrit 37.2 % (38.8-50.0); Hemoglobin 11.8 g/dL (13.5-17.5); Mean Corpuscular HGB CONC 31.7 g/dL (32.0-36.0); Mean Corpuscular Hemoglobin 26.1 pg (27.0-33.0); Mean Corpuscular Volume 82.3 fl (81.2-95.1); Platelet Count 203 10x3/uL (150-450); RBC Distribution Width 16.8 % (11.5-14.5); Red Blood Cell (RBC) Count 4.52 10x6/uL (4.32-5.72); White Blood Cell (WBC) Count 8.3 10x3/uL (3.5-10.5)
[2023-11-28 15:08] LABS: ALT (SGPT) 9 U/L (8-55); AST (SGOT) 12 U/L (5-34); Albumin 3.5 g/dL (3.4-4.8); Alkaline Phosphatase 142 U/L (40-110); Anion Gap 13 mmol/L (10-20); BUN (Urea Nitrogen) 13 mg/dL (8.4-25.7); Bilirubin, Total 1.2 mg/dL (0.2-1.2); Calc. Creatinine Clearance 0 mL/min (70-130); Calcium 8.4 mg/dL (7.8-10.44); Carbon Dioxide 20 mmol/L (23-31); Chloride 106 mmol/L (98-107); Estimated GFR 98; Globulin 1.9 g/dL (2.4-3.5); Glucose 138 mg/dL (80-115); Potassium 4.1 mmol/L (3.5-5.1); Protein, Total 5.4 g/dL (5.8-8.1); Sodium 135 mmol/L (136-145)
[2023-11-28] MEDS ORDERED: Furosemide 40 MG (4 mL) VIAL ONE (15:39)
[2023-11-28 17:18] LABS: Troponin I 0.047 ng/mL (< 0.028)
== END 2023-11-28 17:50 ==
LOC: EEVIPCON 14:28 → CSHERS 14:28
DX: R07.89 Other chest pain (principal); I11.0 Hypertensive heart disease with heart failure; I50.9 Heart failure, unspecified; E87.70 Fluid overload, unspecified; J44.9 Chronic obstructive pulmonary disease, unspecified; I25.10 Atherosclerotic heart disease of native coronary artery without angina pectoris; I48.91 Unspecified atrial fibrillation; G40.909 Epilepsy, unspecified, not intractable, without status epilepticus; Z79.899 Other long term (current) drug therapy; Z79.01 Long term (current) use of anticoagulants
CPT/HCPCS: 36415; 71045; 80053; 83880; 84484; 85025; 93005; 96374; J1940

== ENCOUNTER 2023-12-12 18:36 | Emergency (ER) | payer OTHER ==
[2023-12-12] MEDS ORDERED: Furosemide 40 MG (4 mL) VIAL ONE (19:14)
[2023-12-12 19:28] LABS: #Basophils 0.1 10x3/uL (0.0-0.2); #Eosinphils 0.9 10x3/uL (0.0-0.5); #Monocytes 0.7 10x3/uL (0.0-1.1); #Neutrophils 6.2 10x3/uL (1.5-8.4); %Basophils 0.8 % (0.0-2.0); %Eosinophils 9.9 % (0.0-6.0); %Lymphocytes 13.3 % (18.0-47.0); %Monocytes 7.2 % (0.0-10.0); %Neutrophils 68.5 % (40.0-75.0); Hematocrit 40.8 % (38.8-50.0); Mean Corpuscular HGB CONC 31.9 g/dL (32.0-36.0); Mean Corpuscular Hemoglobin 26.7 pg (27.0-33.0); Mean Corpuscular Volume 83.8 fl (81.2-95.1); Platelet Count 183 10x3/uL (150-450); RBC Distribution Width 16.6 % (11.5-14.5); Red Blood Cell (RBC) Count 4.87 10x6/uL (4.32-5.72)
[2023-12-12 19:33] LABS: ALT (SGPT) 7 U/L (8-55); AST (SGOT) 11 U/L (5-34); Albumin 3.6 g/dL (3.4-4.8); Alkaline Phosphatase 154 U/L (40-110); Anion Gap 15 mmol/L (10-20); BUN (Urea Nitrogen) 12 mg/dL (8.4-25.7); Bilirubin, Total 1.1 mg/dL (0.2-1.2); Calc. Creatinine Clearance 0 mL/min (70-130); Calcium 8.5 mg/dL (7.8-10.44); Carbon Dioxide 21 mmol/L (23-31); Chloride 106 mmol/L (98-107); Estimated GFR 95; Globulin 2.2 g/dL (2.4-3.5); Glucose 92 mg/dL (80-115); Potassium 3.7 mmol/L (3.5-5.1); Protein, Total 5.8 g/dL (5.8-8.1); Sodium 138 mmol/L (136-145)
[2023-12-12 19:39] LABS: Troponin I 0.035 ng/mL (< 0.028)
[2023-12-12 19:48] LABS: INR-International Normal Ratio 1.2; PTT 28.2 sec (22.0-33.0); Prothrombin Time 12.5 sec (9.5-12.1)
[2023-12-12 20:04] LABS: Influenza A by NAA Not Detected (NotDetected); Influenza B by NAA Not Detected (NotDetected); SARS-CoV-2 NAA Rapid Test DETECTED (NotDetected)
[2023-12-12] MEDS ORDERED: Ventolin HFA Inhaler 60 PUFF INHALER ONE (20:27)
== END 2023-12-12 21:30 ==
LOC: EEVIPCON 18:36 → CSHERS 18:36
DX: U07.1 COVID-19 (principal); R06.02 Shortness of breath; I11.0 Hypertensive heart disease with heart failure; I50.9 Heart failure, unspecified; Z95.0 Presence of cardiac pacemaker
CPT/HCPCS: 71045; 80053; 83605; 83880; 84484; 85025; 85610; 85730; 93005; 93010; 96374; J1940

== ENCOUNTER 2023-12-21 22:46 | Inpatient (IN) | payer OTHER ==
[2023-12-21 23:03] LABS: Actual Bicarbonate (HCO3v) 23.6 mEq/L (22-28); Analyzer IN Cardio CS ER; Calcium, Ionized (venous) 1.11 mmol/L (1.16-1.32); Chloride (VBG) 101 mmol/L (98-106); Hematocrit-VBG 40 % (42.0-52.0); Hemoglobin (Hb) 13.6 g/dL (12.6-17.4); Potassium (VBG) 4.09 mmol/L (3.70-5.30); Puncture Site Other Site; RapidComm Collect By CBN; Sodium 139 mmol/L (133-146); pH (venous) 7.264 (7.32-7.43)
[2023-12-21] MEDS ORDERED: Furosemide 40 MG (4 mL) VIAL ONE (23:04)
[2023-12-21 23:08] LABS: #Basophils 0.1 10x3/uL (0.0-0.2); #Eosinphils 0.7 10x3/uL (0.0-0.5); #Neutrophils 14.7 10x3/uL (1.5-8.4); %Basophils 0.5 % (0.0-2.0); %Eosinophils 3.6 % (0.0-6.0); %Lymphocytes 7.5 % (18.0-47.0); %Monocytes 5.5 % (0.0-10.0); %Neutrophils 82.2 % (40.0-75.0); Hematocrit 41.5 % (38.8-50.0); Hemoglobin 12.8 g/dL (13.5-17.5); Mean Corpuscular HGB CONC 30.8 g/dL (32.0-36.0); Mean Corpuscular Hemoglobin 26.1 pg (27.0-33.0); Mean Corpuscular Volume 84.7 fl (81.2-95.1); Mean Platelet Volume 10.5 fl (7.4-10.4); Platelet Count 234 10x3/uL (150-450); RBC Distribution Width 16.3 % (11.5-14.5); White Blood Cell (WBC) Count 17.8 10x3/uL (3.5-10.5)
[2023-12-21 23:23] LABS: ALT (SGPT) 7 U/L (8-55); AST (SGOT) 12 U/L (5-34); Albumin 3.8 g/dL (3.4-4.8); Alkaline Phosphatase 160 U/L (40-110); Anion Gap 16 mmol/L (10-20); BUN (Urea Nitrogen) 16 mg/dL (8.4-25.7); Bilirubin, Total 1.4 mg/dL (0.2-1.2); Calc. Creatinine Clearance 0 mL/min (70-130); Calcium 8.7 mg/dL (7.8-10.44); Carbon Dioxide 22 mmol/L (23-31); Chloride 104 mmol/L (98-107); Estimated GFR 93; Globulin 2.5 g/dL (2.4-3.5); Glucose 87 mg/dL (80-115); Magnesium 1.6 mg/dL (1.6-2.6); Potassium 4.1 mmol/L (3.5-5.1); Protein, Total 6.3 g/dL (5.8-8.1); Sodium 138 mmol/L (136-145)
[2023-12-21 23:29] LABS: Troponin I 0.041 ng/mL (< 0.028)
[2023-12-21] MEDS ORDERED: Acetaminophen 500 MG TAB ONE (23:35)
[2023-12-21] MEDS ORDERED: dilTIAZem 25 MG/5 ML VIAL ONE (23:36)
[2023-12-21] MEDS ORDERED: Cefepime 2 GM VIAL ONE (23:36)
[2023-12-21 23:57] LABS: Influenza A by NAA Not Detected (NotDetected); Influenza B by NAA Not Detected (NotDetected); SARS-CoV-2 NAA Rapid Test Not Detected (NotDetected)
[2023-12-22] MEDS ORDERED: Nitroglycerin 0.4 MG TAB (25 Tab Bottle) SL PRN (01:58)
[2023-12-22 02:46] LABS: #Basophils 0.1 10x3/uL (0.0-0.2); #Eosinphils 0.1 10x3/uL (0.0-0.5); #Monocytes 0.9 10x3/uL (0.0-1.1); #Neutrophils 15.2 10x3/uL (1.5-8.4); %Basophils 0.4 % (0.0-2.0); %Eosinophils 0.4 % (0.0-6.0); %Lymphocytes 3.9 % (18.0-47.0); %Monocytes 5.3 % (0.0-10.0); %Neutrophils 89.1 % (40.0-75.0); Hematocrit 37.5 % (38.8-50.0); Mean Corpuscular Hemoglobin 26.5 pg (27.0-33.0); Mean Corpuscular Volume 82.8 fl (81.2-95.1); Mean Platelet Volume 10.3 fl (7.4-10.4); Platelet Count 165 10x3/uL (150-450); RBC Distribution Width 16.5 % (11.5-14.5); Red Blood Cell (RBC) Count 4.53 10x6/uL (4.32-5.72); White Blood Cell (WBC) Count 17.1 10x3/uL (3.5-10.5)
[2023-12-22 03:04] LABS: Magnesium 1.5 mg/dL (1.6-2.6)
[2023-12-22 03:11] LABS: Troponin I 0.039 ng/mL (< 0.028)
[2023-12-22] MEDS: Nitroglycerin 2% Ointment 1 INCH/1 GM Packet TOP SCH (03:15)
[2023-12-22] MEDS: Enalaprilat Dihydrate 1.25 MG/ML VIAL SLOW IVP SCH (03:25)
[2023-12-22] MEDS: Magnesium 2 GM/50 ML(in water) 2 GM in Premix 1 BAG IVPB SCH ×2 (04:19→11:00)
[2023-12-22 05:18] LABS: Bilirubin Neg (Negative); Blood, Urine Negative (Negative); Clarity Clear (Clear); Glucose, Urine (Dipstick) Normal (Negative); Ketone, Urine Negative (Negative); Leukocyte Negative (Negative); Nitrite Negative (Negative); Protein, Urine (Dipstick) 15 mg/dl (Neg-Trace); Specific Gravity, Urine 1.005 (1.005-1.030); Urobilinogen Normal mg/dL (Less than 2)
[2023-12-22 05:27] LABS: Bacteria/HPF None Seen HPF (None Seen); RBC/HPF None Seen HPF (0-3); Squamous Epithelial 0-3 HPF (0-3); WBC/HPF None Seen HPF (0-3)
[2023-12-22] MEDS: Furosemide 40 MG (4 mL) VIAL SLOW IVP SCH (05:39)
[2023-12-22 05:41] LABS: Troponin I 0.038 ng/mL (< 0.028)
[2023-12-22] MEDS: Arformoterol 15 MCG/2 ML NEB NEB SCH (07:17)
[2023-12-22] MEDS: Ipratropium/Albuterol 3 ML NEB NEB SCH (07:17)
[2023-12-22] MEDS: Budesonide 0.5 MG/2 ML NEB INH SCH (07:17)
[2023-12-22] MEDS: Clopidogrel Bisulfate 75 MG TAB PO SCH (08:44)
[2023-12-22] MEDS: Atorvastatin Calcium 40 MG TAB PO SCH (08:45)
[2023-12-22] MEDS: Empagliflozin 10 MG TAB PO SCH (08:45)
[2023-12-22] MEDS: Digoxin 0.125 MG TAB PO SCH (08:45)
[2023-12-22] MEDS: Carvedilol 25 MG TAB PO SCH (08:45)
[2023-12-22] MEDS: Magnesium Oxide 400 MG TAB PO SCH (08:45)
[2023-12-22] MEDS: Docusate 100 MG CAP PO SCH (08:45)
[2023-12-22] MEDS: Rivaroxaban 10 MG TAB PO SCH (08:46)
[2023-12-22] MEDS: Spironolactone 25 MG TAB PO SCH (08:46)
[2023-12-22] MEDS ORDERED: Magnesium Sulfate 4 GM in Sodium Chloride 0.9% 250 ML 250 ML IVPB SCH (10:45)
[2023-12-22 14:23] LABS: Digoxin Less than 0.15 ng/mL (0.8-2.0)
[2023-12-22] MEDS: Terazosin HCl 5 MG CAP PO SCH (20:32)
[2023-12-22] MEDS: Terazosin HCl 1 MG CAP PO SCH (20:32)
[2023-12-22] MEDS ORDERED: Terazosin HCl 1 MG CAP PO SCH (21:00)
[2023-12-23 03:58] LABS: Anion Gap 12 mmol/L (10-20); BUN (Urea Nitrogen) 23 mg/dL (8.4-25.7); Calc. Creatinine Clearance 229 mL/min (70-130); Calcium 8.6 mg/dL (7.8-10.44); Carbon Dioxide 23 mmol/L (23-31); Chloride 106 mmol/L (98-107); Estimated GFR 86; Glucose 109 mg/dL (80-115); Potassium 4.1 mmol/L (3.5-5.1); Sodium 137 mmol/L (136-145)
[2023-12-23 09:13] LABS: Magnesium 1.9 mg/dL (1.6-2.6)
[2023-12-23] MEDS: Lisinopril 5 MG TAB PO SCH (09:30)
[2023-12-23] MEDS: Magnesium 2 GM/50 ML(in water) 2 GM in Premix 1 BAG IVPB SCH (13:48)
[2023-12-24 03:22] LABS: #Eosinphils 0.8 10x3/uL (0.0-0.5); #Monocytes 0.7 10x3/uL (0.0-1.1); #Neutrophils 6.9 10x3/uL (1.5-8.4); %Basophils 0.4 % (0.0-2.0); %Eosinophils 8.4 % (0.0-6.0); %Lymphocytes 9.2 % (18.0-47.0); %Monocytes 7.6 % (0.0-10.0); %Neutrophils 74.1 % (40.0-75.0); Hematocrit 34.7 % (38.8-50.0); Hemoglobin 11.1 g/dL (13.5-17.5); Mean Corpuscular Hemoglobin 26.6 pg (27.0-33.0); Mean Platelet Volume 10.4 fl (7.4-10.4); Platelet Count 143 10x3/uL (150-450); RBC Distribution Width 16.1 % (11.5-14.5); Red Blood Cell (RBC) Count 4.18 10x6/uL (4.32-5.72); White Blood Cell (WBC) Count 9.3 10x3/uL (3.5-10.5)
[2023-12-24 03:57] LABS: Anion Gap 14 mmol/L (10-20); BUN (Urea Nitrogen) 26 mg/dL (8.4-25.7); Calc. Creatinine Clearance 58 mL/min (70-130); Calcium 8.9 mg/dL (7.8-10.44); Carbon Dioxide 22 mmol/L (23-31); Chloride 104 mmol/L (98-107); Estimated GFR 78; Glucose 126 mg/dL (80-115); Magnesium 2.1 mg/dL (1.6-2.6); Potassium 3.8 mmol/L (3.5-5.1); Sodium 136 mmol/L (136-145)
[2023-12-24] MEDS: Lisinopril 2.5 MG TAB PO SCH (08:21)
[2023-12-24] MEDS ORDERED: Lisinopril 5 MG TAB PO SCH (09:00)
[2023-12-24] MEDS: Ondansetron PF 4 MG/2 ML Vial IVP SCH (11:22)
[2023-12-24] MEDS: Ondansetron PF 4 MG/2 ML Vial ONE (11:22)
[2023-12-24 13:29] LABS: Troponin I 0.027 ng/mL (< 0.028)
[2023-12-24] MEDS: Aspirin 325 mg Enteric Coated Tablet PO SCH (13:49)
[2023-12-24] MEDS: Promethazine HCl 12.5 MG, Admixture Fee 1 EACH in Sodium Chloride 0.9% 50 ML IVPB PRN (14:11)
[2023-12-24 14:22] LABS: ALT (SGPT) 9 U/L (8-55); AST (SGOT) 13 U/L (5-34); Albumin 3.4 g/dL (3.4-4.8); Alkaline Phosphatase 127 U/L (40-110); Bilirubin, Direct 0.5 mg/dL (0.1-0.3); Bilirubin, Total 0.7 mg/dL (0.2-1.2); Protein, Total 5.6 g/dL (5.8-8.1)
[2023-12-24] MEDS: Potassium Chloride 20 MEQ in Premix 1 BAG IVPB SCH (14:53)
[2023-12-24] MEDS ORDERED: Acetaminophen 500 MG TAB PO PRN (16:50)
[2023-12-24] MEDS: Ketorolac Tromethamine 30 MG (1 mL) VIAL IVP SCH (17:03)
[2023-12-24] MEDS: Pantoprazole 40 MG VIAL IVP SCH (17:04)
[2023-12-24 17:48] LABS: Digoxin 0.32 ng/mL (0.8-2.0)
[2023-12-25 03:50] LABS: Anion Gap 15 mmol/L (10-20); BUN (Urea Nitrogen) 27 mg/dL (8.4-25.7); Calc. Creatinine Clearance 108 mL/min (70-130); Carbon Dioxide 23 mmol/L (23-31); Chloride 103 mmol/L (98-107); Estimated GFR 73; Glucose 131 mg/dL (80-115); Potassium 3.9 mmol/L (3.5-5.1); Sodium 137 mmol/L (136-145)
[2023-12-25] MEDS: Ondansetron PF 4 MG/2 ML Vial IVP PRN (08:10)
[2023-12-25] MEDS: Pantoprazole 40 MG VIAL IVP SCH ×2 (08:10→08:40)
[2023-12-25 12:13] LABS: Digoxin 0.51 ng/mL (0.8-2.0)
[2023-12-25 12:47] LABS: Hematocrit 35.2 % (38.8-50.0); Hemoglobin 11.4 g/dL (13.5-17.5); Platelet Count 151 10x3/uL (150-450)
[2023-12-25] MEDS: Furosemide 40 MG (4 mL) VIAL SLOW IVP SCH (15:21)
[2023-12-25] MEDS ORDERED: Lactulose 20 GM (30 mL) UDCUP PO SCH (21:00)
[2023-12-26] MEDS: Furosemide 40 MG (4 mL) VIAL SLOW IVP SCH ×2 (01:13→14:59)
[2023-12-26 02:52] LABS: #Basophils 0.05 10x3/uL (0.0-0.2); #Eosinphils 0.63 10x3/uL (0.0-0.5); #Monocytes 0.64 10x3/uL (0.0-1.1); #Neutrophils 5.97 10x3/uL (1.5-8.4); %Basophils 0.6 % (0.0-2.0); %Eosinophils 7.7 % (0.0-6.0); %Lymphocytes 10.2 % (18.0-47.0); %Monocytes 7.8 % (0.0-10.0); %Neutrophils 73.2 % (40.0-75.0); Hematocrit 35.4 % (38.8-50.0); Hemoglobin 11.4 g/dL (13.5-17.5); Mean Corpuscular HGB CONC 32.2 g/dL (32.0-36.0); Mean Corpuscular Volume 83.7 fl (81.2-95.1); Mean Platelet Volume 10.4 fl (7.4-10.4); Platelet Count 141 10x3/uL (150-450); Red Blood Cell (RBC) Count 4.23 10x6/uL (4.32-5.72); White Blood Cell (WBC) Count 8.2 10x3/uL (3.5-10.5)
[2023-12-26 03:48] LABS: Anion Gap 12 mmol/L (10-20); BUN (Urea Nitrogen) 28 mg/dL (8.4-25.7); Calc. Creatinine Clearance 114 mL/min (70-130); Calcium 8.6 mg/dL (7.8-10.44); Carbon Dioxide 26 mmol/L (23-31); Chloride 103 mmol/L (98-107); Estimated GFR 80; Glucose 123 mg/dL (80-115); Sodium 137 mmol/L (136-145)
[2023-12-26] MEDS: Albumin 25% 25 GM (100 mL) BOT IVPB SCH ×2 (14:59→18:02)
[2023-12-26] MEDS: Carvedilol 12.5 MG TAB PO SCH (18:02)
[2023-12-26] MEDS: Lisinopril 2.5 MG TAB PO SCH (22:34)
[2023-12-27 03:00] LABS: Hematocrit 33.7 % (38.8-50.0); Hemoglobin 10.5 g/dL (13.5-17.5)
[2023-12-27 04:03] LABS: Anion Gap 15 mmol/L (10-20); BUN (Urea Nitrogen) 27 mg/dL (8.4-25.7); Calc. Creatinine Clearance 112 mL/min (70-130); Carbon Dioxide 23 mmol/L (23-31); Chloride 102 mmol/L (98-107); Estimated GFR 81; Glucose 114 mg/dL (80-115); Potassium 3.8 mmol/L (3.5-5.1); Sodium 136 mmol/L (136-145)
[2023-12-27 08:51] LABS: Magnesium 1.9 mg/dL (1.6-2.6)
[2023-12-28 03:18] LABS: Hematocrit 32.1 % (38.8-50.0); Hemoglobin 10.3 g/dL (13.5-17.5)
[2023-12-28 03:54] LABS: Anion Gap 14 mmol/L (10-20); BUN (Urea Nitrogen) 27 mg/dL (8.4-25.7); Calc. Creatinine Clearance 115 mL/min (70-130); Calcium 8.9 mg/dL (7.8-10.44); Carbon Dioxide 24 mmol/L (23-31); Chloride 102 mmol/L (98-107); Estimated GFR 81; Glucose 146 mg/dL (80-115); Potassium 3.9 mmol/L (3.5-5.1); Sodium 136 mmol/L (136-145)
[2023-12-28] MEDS: Rivaroxaban 10 MG TAB PO SCH (08:58)
[2023-12-28] MEDS: Metolazone 2.5 MG TAB PO SCH (14:04)
[2023-12-28] MEDS: Albumin 25% 25 GM (100 mL) BOT IVPB SCH ×2 (14:04→17:41)
[2023-12-29 03:57] LABS: Anion Gap 14 mmol/L (10-20); BUN (Urea Nitrogen) 28 mg/dL (8.4-25.7); Calc. Creatinine Clearance 128 mL/min (70-130); Calcium 9.4 mg/dL (7.8-10.44); Carbon Dioxide 25 mmol/L (23-31); Chloride 101 mmol/L (98-107); Estimated GFR 93; Glucose 98 mg/dL (80-115); Potassium 4.1 mmol/L (3.5-5.1); Sodium 136 mmol/L (136-145)
[2023-12-29] MEDS: Metolazone 5 MG TAB PO SCH (18:19)
[2023-12-30 05:38] LABS: Anion Gap 13 mmol/L (10-20); BUN (Urea Nitrogen) 26 mg/dL (8.4-25.7); Calc. Creatinine Clearance 130 mL/min (70-130); Calcium 9.2 mg/dL (7.8-10.44); Carbon Dioxide 26 mmol/L (23-31); Chloride 100 mmol/L (98-107); Estimated GFR 94; Glucose 103 mg/dL (80-115); Sodium 135 mmol/L (136-145)
[2023-12-30 06:51] VITALS: BMI 37.1
[2023-12-30] MEDS: Metolazone 5 MG TAB PO SCH (12:41)
[2023-12-30] MEDS ORDERED: traMADol HCl 50 MG TAB PO SCH (22:45)
[2023-12-30] MEDS: Morphine 4 MG/ML VIAL SLOW IVP SCH (23:19)
[2023-12-31] MEDS: Morphine 2 MG/ML VIAL SLOW IVP SCH (04:52)
[2023-12-31 08:32] VITALS: TEMP 97.6
[2023-12-31 12:04] VITALS: BP 113/57
== END 2023-12-31 16:00 | DRG 291 ==
LOC: CSHERS 22:46 → EEVIPCON 12-22 00:22 → CSHIMCU 12-22 00:22 → CSHTELE 12-29 16:33
PROVIDERS: ADMIT Family Medicine; ATTEND Family Medicine
PROC: 5A09557 Assistance with Respiratory Ventilation, Greater than 96 Consecutive Hours, Continuous Positive Airway Pressure (ICD-10-PCS; 2023-12-22)
PROC: 30233J1 Transfusion of Nonautologous Serum Albumin into Peripheral Vein, Percutaneous Approach (ICD-10-PCS; principal; 2023-12-27)
DX: I11.0 Hypertensive heart disease with heart failure (principal); I50.23 Acute on chronic systolic (congestive) heart failure; J96.01 Acute respiratory failure with hypoxia; K92.0 Hematemesis; I25.10 Atherosclerotic heart disease of native coronary artery without angina pectoris; K46.9 Unspecified abdominal hernia without obstruction or gangrene; J44.9 Chronic obstructive pulmonary disease, unspecified; G47.33 Obstructive sleep apnea (adult) (pediatric); I48.0 Paroxysmal atrial fibrillation; E83.42 Hypomagnesemia; R33.9 Retention of urine, unspecified; E78.5 Hyperlipidemia, unspecified; Z88.0 Allergy status to penicillin; Z79.82 Long term (current) use of aspirin; Z79.899 Other long term (current) drug therapy; Z79.51 Long term (current) use of inhaled steroids; Z95.1 Presence of aortocoronary bypass graft; Z95.810 Presence of automatic (implantable) cardiac defibrillator; Z82.49 Family history of ischemic heart disease and other diseases of the circulatory system; Z87.891 Personal history of nicotine dependence
CPT/HCPCS: 36415; 71045; 80048; 80053; 80076; 80162; 81001; 82805; 83735; 83880; 84443; 84484; 84550; 85014; 85018; 85025; 85049; 87040; 87324; 87449; 93005; 93010; 94640; 94660; 94760; 94762; 96374; 96375; C9113; J0692; J1885; J1940; J2270; J2272; J2405; J2550; J3475; J3480; J7620; J7626; P9047